=== PATIENT | female | born 1995 | race Caucasian/White ===

== ENCOUNTER 2017-11-01 18:53 | Day surgery (SDC) | payer OTHER ==
[2017-11-01 19:37] VITALS: BP 107/57; TEMP 98.4
--- NOTE | 2017-11-02 05:02 | SS ---
OB TRIAGE NOTE DATE OF EVALUATION: 11/01/2017 REGULAR PHYSICIAN: Radha Dominguez MD EVALUATING PHYSICIAN: Burak Gage MD CHIEF COMPLAINT: No movement in the last 24 hours. HISTORY OF PRESENT ILLNESS: Ms. Sinclair is a 22-year-old white G1, P0, estimated date of confinem ent of 03/03/2018, who presents complaining of suspected decreased movement over the last 24 ho urs. She denies associated vaginal bleeding or leakage of fluid. Her care has been with Dr Blair Dominguez and she claims that she had a normal ultrasound at [facility] at 16-18 weeks . PAST MEDICAL HISTORY: Asthma and ADHD. CURRENT MEDICATIONS: vitamins only. ALLERGIES: PENICILLIN and SULFA. PAST SURGICAL HISTORY: Unremarkable. SOCIAL HISTORY: She denies tobacco, alcohol, or drug use. FAMILY HISTORY: Unremarkable. REVIEW OF SYSTEMS: Denies nausea, vomiting, fever, chills, vaginal bleeding, or ruptured membranes. PHYSICAL EXAMINATION: VITAL SIGNS: Stable. She is afebrile. ABDOMEN: Soft, nontender and gravid. heart tones are easily obtained and active movemen t is heard through the tocodynamometer. No uterine contractions were seen. ASSESSMENT: 1. A 22 and 4/7th week intrauterine . 2. Reassuring heart tones in triage tonight. PLAN: Patient will be discharged home with precautions. She is reassured and she feels much better. At the conclusion of the encounter, she states that she is now feeling her baby move. She will fol low up for her next regular visit with Dr. Dominguez.
== END 2017-11-01 19:49 | disposition home or self-care (01) ==
LOC: L&D/OP 18:53
PROVIDERS: ATTEND Obstetrics & Gynecology
DX: Z03.79 Encounter for other suspected maternal and fetal conditions ruled out (principal); Z88.0 Allergy status to penicillin; Z88.2 Allergy status to sulfonamides
CPT/HCPCS: 99282

== ENCOUNTER 2018-02-26 21:00 | Inpatient (IN) | payer MEDICAID, OTHER ==
[2018-02-26] MEDS ORDERED: NS w/ Oxytocin 10 units 500 ML IV SCH (21:45)
[2018-02-26] MEDS ORDERED: HYDROcodone/Acetaminophen 5/325 mg Tablet PO PRN (21:45)
[2018-02-26] MEDS ORDERED: Methylergonovine 0.2 MG/ML VIAL IM PRN (21:45)
[2018-02-26] MEDS ORDERED: Meperidine HCl/PF 25 MG/ML VIAL IM/IV PRN (21:45)
[2018-02-26] MEDS ORDERED: Ibuprofen 800 MG TAB PO PRN (21:45)
[2018-02-26] MEDS ORDERED: Butorphanol Tartrate 1 MG/ML VIAL SLOW IVP PRN (21:45)
[2018-02-26] MEDS ORDERED: Ondansetron PF 4 MG/2 ML Vial IVP PRN (21:45)
[2018-02-26] MEDS ORDERED: NS / Oxytocin 40 units/1000ml 1,000 ML IV PRN (21:45)
[2018-02-26] MEDS ORDERED: Carboprost 250 MCG/ML AMP IM PRN (21:45)
[2018-02-26] MEDS ORDERED: Promethazine HCl 25 MG/ML VIAL IM PRN (21:45)
[2018-02-26] MEDS ORDERED: Lidocaine 1% (PF) 30 ML VIAL SC PRN (21:45)
[2018-02-26] MEDS ORDERED: Acetaminophen 500 MG TAB PO PRN (21:45)
[2018-02-26] MEDS ORDERED: Misoprostol 200 MCG TAB PR PRN (21:45)
[2018-02-26] MEDS: Lactated Ringer's 1,000 ML IV SCH (21:51)
[2018-02-26 21:55] VITALS: BMI 35.1
[2018-02-26 22:07] LABS: Hemoglobin 11.1 g/dL (12.0-16.0); Mean Corpuscular HGB CONC 31.8 g/dL (32.0-36.0); Mean Corpuscular Hemoglobin 24.3 pg (25.0-35.0); Mean Corpuscular Volume 76.4 fL (78.0-98.0); Mean Platelet Volume 9.3 fL (7.4-10.4); Platelet Count 200 thou/uL (130-400); Red Blood Cell (RBC) Count 4.55 mill/uL (4.00-5.20); White Blood Cell (WBC) Count 11.5 thou/uL (4.8-10.8)
[2018-02-26] MEDS: Misoprostol 100 MCG TAB VAG SCH (22:23)
[2018-02-26 22:49] LABS: Syphilis Antibody Nonreactive (Nonreactive); Syphilis Antibody Index 0.06 S/CO (<1.00 Non-Reactive)
[2018-02-26 23:58] LABS: HBSAg Index 0.22 S/CO (0-0.99); Hep B Surf Ag Non-Reactive S/CO (NonReactive)
[2018-02-27] MEDS: Misoprostol 100 MCG TAB VAG SCH (02:01)
[2018-02-27] MEDS: Lactated Ringer's 1,000 ML IV SCH (03:52)
--- NOTE | 2018-02-27 13:53 | PDOC.LDHP ---
Labor and Delivery H&P Chief complaint: contractions HPI: 39 + weeks c/o contractions. Shceduled for iOL tonight with cytotec. We discussed in the office that her cervix was not favorable but she arrived to L& D tonight with CTX. Would like to try cytotec. Current gestational age (weeks): 39 Dating criteria: last menstrual period, first trimester ultrasound Grav: 1 Para: 0 OB History Details: Routine OB care. Current complications: none Abnormal US findings: Yes ( ECHO done for family h/o congenital heart disease - showed VSD) Current medications: pre- vitamins Previous surgical history: none Allergies/Adverse Reactions: Allergies Allergy/AdvReac Type Severity Reaction Status Date / Time Penicillins Allergy Intermediate Severe Verified 02/26/18 21:49 Hives Sulfa (Sulfonamide Allergy Intermediate Short of Verified 02/26/18 21:49 Antibiotics) Breath Social history: none - Physical Exam Vital signs reviewed and normal: yes General: NAD Heart: RRR Lungs: CTAB Abdomen: NTTP Extremeties: no edema FHT: category 1 - Vaginal Exam cm dilated: 0 Effacement: 0% Station: -3 - OB Labs Blood type: A RH: positive Antibody Screen: negative HIV: negative RPR: negative HEPSAg: negative 1 hour GCT: negative GBS: negative Urine drug screen: not done Rubella: non-immune - Assessment L&D Assessment: elective induction at term - Plan Plan: admit to L&D, cervical ripening, labor augmentation if indicated (WIll try cytotec overnight. Cervix still not favorable. FWB reassuring.)
--- NOTE | 2018-02-27 13:58 | PDOC.LDPN ---
Labor & Delivery Progress Note - Subjective Subjective: comfortable - Objective Vital signs reviewed and normal: yes General: NAD Uterine fundus: non tender Dilation: 1 Effacement: 0% Station: -3 FHT: category 1 [place] contractions every: 2 minuteds - Assessment (1) Elective induction of labor planned Code(s): AHC2360 - Status: Acute (2) Term Code(s): Z34.80 - ENCOUNTER FOR SUPRVSN OF NORMAL , UNSP TRIMESTER Status: Acute Plan: other (Discussed with pt and her that she did not respond to cytotec overnight. Cervix still not favorable. Offered continued IOL with balloon and pitocin or D/C home and F/U in a few days to reassess the cervix. THey agreed that they want to go home. D/C home with short term F/U in office.)
== END 2018-02-27 10:37 | disposition home health service (06) | DRG 833 ==
LOC: L&D 21:20
PROVIDERS: ADMIT Family Medicine; ATTEND Family Medicine
PROC: 3E0P7VZ Introduction of Hormone into Female Reproductive, Via Natural or Artificial Opening (ICD-10-PCS; principal; 2018-02-26)
DX: O61.0 Failed medical induction of labor (principal); Z3A.39 39 weeks gestation of pregnancy; J45.20 Mild intermittent asthma, uncomplicated; Z79.51 Long term (current) use of inhaled steroids; O99.513 Diseases of the respiratory system complicating pregnancy, third trimester; F90.9 Attention-deficit hyperactivity disorder, unspecified type; F31.9 Bipolar disorder, unspecified; O99.343 Other mental disorders complicating pregnancy, third trimester
CPT/HCPCS: 36415; 85027; 86780; 86850; 86900; 86901; 87340; 99285

== ENCOUNTER 2018-02-28 16:38 | Day surgery (SDC) | payer MEDICAID ==
[2018-02-28 17:12] VITALS: BMI 35.1
[2018-02-28] MEDS ORDERED: Butorphanol Tartrate 1 MG/ML VIAL IM PRN (18:03)
--- NOTE | 2018-03-01 08:24 | PDOC.LDHP ---
Labor and Delivery H&P Chief complaint: contractions HPI: 22 y/o G1 at 39w4d, patient of Dr. Dominguez, presents with ctx. Patient was discharged yesterday after initial attempt at induction. Denies VB, LOF, or decreased FM. ROS neg for HEENT, CV, pulm, GI, , neuro, psych, skin, musculoskeletal, or constitutional symptoms other than mentioned above. OB History Details: First Current complications: none Past Medical History: None Current medications: pre-emmo vitamins Previous surgical history: none Allergies/Adverse Reactions: Allergies Allergy/AdvReac Type Severity Reaction Status Date / Time Penicillins Allergy Intermediate Severe Verified 02/26/18 21:49 Hives Sulfa (Sulfonamide Allergy Intermediate Short of Verified 02/26/18 21:49 Antibiotics) Breath Social history: none - Physical Exam Vital signs reviewed and normal: yes General: NAD, resting Lungs: nonlabored breathing Abdomen: gravid Extremeties: no edema FHT: category 1 (130s, mod variability, + accels, no decels) [place] contractions every: irregular - Vaginal Exam cm dilated: 1 Effacement: 50% Station: -3 - Assessment 22 y/o G1 at 39w4d with no e/o active labor. status reassuring with reactive NST. - Plan -: D/c home with precautions. Has scheduled appointment to follow up with Dr. Dominguez.
== END 2018-02-28 19:30 | disposition home or self-care (01) ==
LOC: L&D/OP 16:38
PROVIDERS: ATTEND Family Medicine
DX: O47.1 False labor at or after 37 completed weeks of gestation (principal); Z88.0 Allergy status to penicillin; Z88.2 Allergy status to sulfonamides; Z3A.39 39 weeks gestation of pregnancy
CPT/HCPCS: 96372; 99283; J0595

== ENCOUNTER 2018-03-01 15:32 | Inpatient (IN) | payer MEDICAID ==
[2018-03-01 16:24] VITALS: BMI 35.1
[2018-03-01] MEDS ORDERED: Promethazine HCl 25 MG/ML VIAL IM PRN ×2 (17:43→19:05)
[2018-03-01] MEDS ORDERED: Misoprostol 200 MCG TAB PR PRN (17:43)
[2018-03-01] MEDS ORDERED: NS / Oxytocin 40 units/1000ml 1,000 ML IV PRN (17:43)
[2018-03-01] MEDS ORDERED: Meperidine HCl/PF 25 MG/ML VIAL IM/IV PRN (17:43)
[2018-03-01] MEDS ORDERED: Ibuprofen 800 MG TAB PO PRN (17:43)
[2018-03-01] MEDS ORDERED: Acetaminophen 500 MG TAB PO PRN (17:43)
[2018-03-01] MEDS ORDERED: Lidocaine 1% (PF) 30 ML VIAL SC PRN (17:43)
[2018-03-01] MEDS ORDERED: Butorphanol Tartrate 1 MG/ML VIAL SLOW IVP PRN (17:43)
[2018-03-01] MEDS ORDERED: Carboprost 250 MCG/ML AMP IM PRN (17:43)
[2018-03-01] MEDS ORDERED: Ondansetron PF 4 MG/2 ML Vial IVP PRN ×2 (17:43→19:05)
[2018-03-01] MEDS ORDERED: HYDROcodone/Acetaminophen 5/325 mg Tablet PO PRN (17:43)
[2018-03-01] MEDS ORDERED: Methylergonovine 0.2 MG/ML VIAL IM PRN (17:43)
[2018-03-01] MEDS ORDERED: NS w/ Oxytocin 10 units 500 ML IV SCH (17:45)
[2018-03-01] MEDS ORDERED: Fentanyl 4 mcg/Bup 0.1% Cadd 100 ML ONE (17:49)
[2018-03-01 18:21] LABS: Hemoglobin 11.9 g/dL (12.0-16.0); Mean Corpuscular HGB CONC 31.6 g/dL (32.0-36.0); Mean Corpuscular Hemoglobin 24.4 pg (25.0-35.0); Mean Corpuscular Volume 77.3 fL (78.0-98.0); Mean Platelet Volume 9.7 fL (7.4-10.4); Platelet Count 213 thou/uL (130-400); RBC Distribution Width 15.3 % (11.5-14.5); Red Blood Cell (RBC) Count 4.86 mill/uL (4.00-5.20)
[2018-03-01 18:48] LABS: Syphilis Antibody Nonreactive (Nonreactive); Syphilis Antibody Index 0.05 S/CO (<1.00 Non-Reactive)
[2018-03-01 18:49] LABS: Hep B Surf Ag Non-Reactive S/CO (NonReactive)
[2018-03-01] MEDS ORDERED: Lactated Ringer's 500 ML IV PRN (19:05)
[2018-03-01] MEDS ORDERED: Eucerin (Mineral Oil/Petrolatum,White) 30 gm Jar TOP PRN (19:05)
[2018-03-01] MEDS ORDERED: ePHEDrine/0.9% NaCl/PF SYRINGE 50 mg/10 ml SLOW IVP PRN (19:05)
[2018-03-01] MEDS ORDERED: Naloxone HCl 0.4 mg/ml Vial IVP PRN ×2 (19:05)
[2018-03-01] MEDS ORDERED: Acetaminophen 325 MG TAB PO PRN (19:05)
[2018-03-01] MEDS ORDERED: Fentanyl 4 mcg/Bupivacaine 0.1% Cassette 100 ML EPIDURAL SCH (19:15)
[2018-03-01] MEDS ORDERED: Communication Order-Pharmacy FS SCH (19:15)
[2018-03-01] MEDS: diphenhydrAMINE 50 MG/ML VIAL IVP PRN ×2 (20:47→23:41)
[2018-03-01] MEDS: Lactated Ringer's 1,000 ML IV SCH (23:38)
[2018-03-02] MEDS ORDERED: Acetaminophen 500 MG TAB PO SCH (01:45)
[2018-03-02] MEDS ORDERED: Fentanyl 4 mcg/Bup 0.1% Cadd 100 ML ONE (02:07)
[2018-03-02] MEDS ORDERED: Lidocaine 1% (PF) 30 ML VIAL ONE (02:22)
[2018-03-02] MEDS ORDERED: NS / Oxytocin 40 units/1000ml 0 ML ONE ×2 (02:22→02:23)
[2018-03-02] MEDS ORDERED: NS / Oxytocin 40 units/1000ml 1,000 ML ONE ×2 (02:23→05:37)
[2018-03-02] MEDS: cefOXitin 2 GM in Sodium Chloride 0.9% 100 ML IVPB SCH ×3 (02:29→17:33)
[2018-03-02] MEDS: diphenhydrAMINE 50 MG/ML VIAL IVP PRN (05:54)
--- NOTE | 2018-03-02 06:05 | OP ---
DATE OF DELIVERY: 03/02/2018 PREOPERATIVE DIAGNOSES: 1. Term intrauterine in labor. 2. Intrapartum fever. POSTOPERATIVE DIAGNOSES: 1. Term intrauterine in labor. 2. Intrapartum fever. PROCEDURE PERFORMED: Normal spontaneous vaginal delivery. SURGEON: Radha Dominguez M.D. ANESTHESIA: Epidural. ESTIMATED BLOOD LOSS: Please see the nurse's notes for QBL. BRIEF DELIVERY SUMMARY: This is a 22-year-old G1 now P1 who presented in active labor. She progress ed well with Pitocin augmentation to complete and pushing. She did develop a fever approximately 3 h ours prior to delivery. She was treated with Tylenol and cefoxitin 2 grams due to PENICILLIN and SUL FA allergies. There was some tachycardia into the 170s related to that fever, but variability of the heart rate tracing was always good. she was complete and pushing. She delivered a live female infant, head OA. Mouth and nares were bulb suctioned at the perineum. There was no nu chal cord. Shoulders and body easily followed and the was placed on mother's abdomen. Infant Apgars were 8 at 1 minute and 9 at 5 minutes. The umbilical cord was doubly clamped and cut and cor d blood was sent for analysis. Placenta delivered spontaneously and intact with a 3-vessel umbilical cord. Uterine fundus was firm following evacuation of the placenta. Cervix, vagina, and perineum w ere inspected for lacerations and there were none to be found. Mom and baby were left with the nurse in excellent condition attempting to breast feed.
[2018-03-02] MEDS ORDERED: diphenhydrAMINE 25 MG CAP PO PRN (06:39)
[2018-03-02] MEDS ORDERED: Preparation H Ointment 28 GM TUBE PR PRN (06:39)
[2018-03-02] MEDS ORDERED: NS / Oxytocin 40 units/1000ml 1,000 ML IV SCH (06:39)
[2018-03-02] MEDS ORDERED: Lanolin Ointment 7 GM TUBE TOP PRN (06:39)
[2018-03-02] MEDS ORDERED: Benzocaine/Menthol 20-0.5% 60 ML CAN TOP PRN (06:39)
[2018-03-02] MEDS ORDERED: Bisacodyl 10 MG SUPP PR PRN (06:39)
[2018-03-02] MEDS ORDERED: Milk Of Magnesia 30 ML UDCUP PO PRN (06:39)
[2018-03-02] MEDS ORDERED: Ibuprofen 800 MG TAB PO SCH (06:45)
[2018-03-02] MEDS: Ferrous Sulfate 325 MG TAB PO SCH ×2 (08:39→17:30)
[2018-03-02] MEDS: Docusate Calcium (SURFAK) 240 MG CAP PO SCH ×2 (10:08→20:54)
[2018-03-02] MEDS: Lactated Ringer's 1,000 ML IV SCH (13:24)
[2018-03-02] MEDS: Ibuprofen 800 MG TAB PO SCH ×2 (13:47→20:54)
[2018-03-03] MEDS ORDERED: Sodium Chloride 0.9% 10 ML ONE (01:36)
[2018-03-03] MEDS: cefOXitin 2 GM in Sodium Chloride 0.9% 100 ML IVPB SCH ×3 (01:41→17:29)
[2018-03-03] MEDS: Ibuprofen 800 MG TAB PO SCH ×3 (06:22→22:01)
[2018-03-03] MEDS: Ferrous Sulfate 325 MG TAB PO SCH (08:19)
[2018-03-03] MEDS: Docusate Calcium (SURFAK) 240 MG CAP PO SCH ×2 (09:07→22:01)
[2018-03-03] MEDS: HYDROcodone/Acetaminophen 5/325 mg Tablet PO PRN ×2 (09:11→23:00)
[2018-03-03] MEDS ORDERED: Bupivacaine 0.25% HCL 30 ML VIAL ONE (13:46)
--- NOTE | 2018-03-03 21:41 | PDOC.EVN ---
Event Note - Event Note Event Note: I was notified by Angi, the patient's nurse, that the patient was upset because she wanted to go home today. Her covering physician is Dex Armstrong. He authorized her discharge home. I then recieved another call that baby will not be cleared until tomorrow. I was asked to place an order for AM discharge for . I will likely send home tomorrow if vitals wnl
--- NOTE | 2018-03-03 22:39 | PDOC.PP ---
Post Progress Note Post Day #: 1 Subjective: OK with discharge tomorrow AM PO intake tolerated: yes Flatus: yes Ambulation: yes Vital Signs (12 hours) Temp Pulse Resp BP 03/03/18 19:55 98.2 F 63 18 125/79 Weight Weight 186 lb - Physical Examination General: NAD Cardiovascular: no m/r/g Respiratory: clear to auscultation bilaterally Abdominal: + bowel sounds Extremities: negative homans (B) Neurological: no gross focal deficits Result Diagrams: 03/01/18 17:10 Additional Labs: Post Labs Blood Type A POSITIVE 03/01/18 17:10 Hep Bs Antigen Non-Reactive S/CO (NonReactive) 03/01/18 17:43 (1) Vaginal delivery Code(s): O80 - ENCOUNTER FOR FULL-TERM UNCOMPLICATED DELIVERY Status: Acute - Assessment/Plan No acute issues, BPs reviewed. Afebrile. Planning on AM discharge as per prior notes. Asked to discharge patient tomorrow for Dr Nitish Armstrong
[2018-03-04] MEDS: cefOXitin 2 GM in Sodium Chloride 0.9% 100 ML IVPB SCH (02:07)
[2018-03-04] MEDS: Ibuprofen 800 MG TAB PO SCH (05:55)
[2018-03-04 05:57] VITALS: TEMP 98
--- NOTE | 2018-03-04 06:02 | PDOC.EVN ---
Event Note - Event Note Event Note: DISCHARGE NOTE: Patient seen at the request of josefina Castillo: Procedure: Vaginal Delivery Patient s/p vaginal delivery, now PPD2, doing well. Patient sent 03/04/18 AM and cleared for DC to home once baby's cultures return negative. Has F/U with Dr Dominguez. S. C/O back discomfort from delivery O. VSS afebrile Was on IV ABX Physical: NAD Ut firm, NT A/P: PPD2 doing well, afebrile...ok for AM discharge home. Keep follow up for Dr Dominguez
[2018-03-04 08:09] VITALS: BP 127/70
[2018-03-04] MEDS: Ferrous Sulfate 325 MG TAB PO SCH (08:27)
[2018-03-04] MEDS: Docusate Calcium (SURFAK) 240 MG CAP PO SCH (08:42)
== END 2018-03-04 09:35 | disposition home or self-care (01) | DRG 807 ==
LOC: L&D/OP 15:32 → L&D 16:07 → 3SE 03-02 08:26
PROVIDERS: ADMIT Family Medicine; ATTEND Family Medicine
PROC: 10E0XZZ Delivery of Products of Conception, External Approach (ICD-10-PCS; principal; 2018-03-02)
PROC: 10907ZC Drainage of Amniotic Fluid, Therapeutic from Products of Conception, Via Natural or Artificial Opening (ICD-10-PCS; 2018-03-02)
DX: O75.2 Pyrexia during labor, not elsewhere classified (principal); Z37.0 Single live birth; Z88.0 Allergy status to penicillin; Z88.2 Allergy status to sulfonamides; Z3A.39 39 weeks gestation of pregnancy
CPT/HCPCS: 51702; 85027; 86780; 86850; 86900; 86901; 87340; 96372; 99283; 99285; J0595; J0694; J1200; J2001; J2405; J7050; S0020

== ENCOUNTER 2018-05-20 15:44 | Emergency (ER) | payer OTHER ==
[2018-05-20] MEDS ORDERED: Acetaminophen 500 MG TAB ONE (16:33)
== END 2018-05-20 17:21 | disposition home or self-care (01) ==
LOC: ERS 15:44
DX: J06.9 Acute upper respiratory infection, unspecified (principal); F41.9 Anxiety disorder, unspecified; F31.9 Bipolar disorder, unspecified; F90.9 Attention-deficit hyperactivity disorder, unspecified type
CPT/HCPCS: 87081; 87430; 87804; 99283

== ENCOUNTER 2018-07-25 04:05 | Emergency (ER) | payer OTHER ==
[2018-07-25 04:57] LABS: Bilirubin Negative (Negative); Blood, Urine Moderate (Negative); Glucose, Urine (Dipstick) Negative (Negative); Leukocyte Large (Negative); Nitrite Positive (Negative); Protein, Urine (Dipstick) 30 mg/dL (Neg-Trace); Specific Gravity, Urine 1.012 (1.002-1.036); Urobilinogen 0.2 mg/dL (0.2-1.0)
[2018-07-25 04:59] LABS: Bacteria/HPF 4+ HPF (None Seen); Hyaline Casts/LPF 0-3 HYALINE CAST LPF (0-3 Hyaline); Pathc Cast-AUWi Flag 0.27 (0-2.49); Pregnancy Test - Urine (BHCG) Negative (Negative); Pregu Control Background? CLEAR/WHITE (CLR/WHITE); Pregu Control Bar Appear? YES (CONTROL BAR); Specific Gravity 1.012 (1.002-1.036); Squamous Epithelial None Seen HPF (0-3); Yeast-AUWi Flag 92.3 (0-25.0)
[2018-07-25 05:00] LABS: Clarity Cloudy (Clear)
[2018-07-25 05:08] LABS: Yeast-All Forms 2+ HPF (None Seen)
[2018-07-25] MEDS ORDERED: Morphine 4 MG/ML VIAL ONE (05:14)
[2018-07-25] MEDS ORDERED: Ondansetron PF 4 MG/2 ML Vial ONE (05:14)
[2018-07-25 05:30] LABS: #Eosinphils 0.1 thou/uL (0.0-0.7); #Monocytes 0.6 thou/uL (0.11-0.59); #Neutrophils 10.2 thou/uL (1.40-6.50); %Basophils 0.2 % (0.0-1.0); %Eosinophils 0.4 % (0.0-10.0); %Lymphocytes 8.6 % (21.0-51.0); %Monocytes 4.7 % (0.0-10.0); %Neutrophils 86.1 % (42.0-75.0); Hemoglobin 12.6 g/dL (12.0-16.0); Mean Corpuscular HGB CONC 33.8 g/dL (32.0-36.0); Mean Corpuscular Hemoglobin 28.4 pg (27.0-31.0); Mean Corpuscular Volume 83.9 fL (78.0-98.0); Mean Platelet Volume 7.7 fL (7.4-10.4); Platelet Count 180 thou/uL (130-400); RBC Distribution Width 11.3 % (11.5-14.5); Red Blood Cell (RBC) Count 4.44 mill/uL (4.20-5.40); White Blood Cell (WBC) Count 11.8 thou/uL (4.8-10.8)
[2018-07-25 05:46] LABS: ALT (SGPT) 14 U/L (8-55); AST (SGOT) 21 U/L (5-34); Albumin 4.3 g/dL (3.5-5.0); Alkaline Phosphatase 116 U/L (40-150); Anion Gap 12 mmol/L (10-20); BUN (Urea Nitrogen) 17 mg/dL (7.0-18.7); Bilirubin, Total 1.7 mg/dL (0.2-1.2); Calc. Creatinine Clearance 0 mL/min (70-130); Calcium 9.4 mg/dL (7.8-10.44); Carbon Dioxide 22 mmol/L (22-29); Chloride 106 mmol/L (98-107); Estimated GFR-MDRD Greater than 90; Globulin 2.8 g/dL (2.4-3.5); Glucose 100 mg/dL (70-105); Protein, Total 7.1 g/dL (6.0-8.3); Sodium 136 mmol/L (136-145)
[2018-07-25] MEDS ORDERED: Ciprofloxacin HCL/Dexameth Otic Drops 7.5 ml Bottle ONE (06:15)
[2018-07-25] MEDS ORDERED: Acetaminophen 500 MG TAB ONE (06:16)
--- NOTE | 2018-07-25 07:08 | CT ---
CT ABDOMEN AND PELVIS NONCONTRAST: INDICATIONS: Left flank pain. COMPARISON: No prior imaging comparison. FINDINGS: There is no evidence of obstructive uropathy. No discrete urinary tract calculi. The imaged lung ba ses are clear. Mild urinary bladder wall prominence is present with slight perivesicular fat strandi ng. Limited evaluation of the solid abdominal organs without IV contrast. The bowel is incompletely assessed on the basis of the noncontrast technique. There is moderate distention of the gallbladder . The osseous structures are intact. IMPRESSION: 1. No urolithiasis or obstructive uropathy. 2. Mild wall prominence of the urinary bladder with a slight degree of perivesicular fat stranding. Recommend clinical correlation to exclude evidence of a urinary tract infection. Note is made that ascending urinary tract infection on the basis of this examination is not excluded. 3. Evaluation otherwise limited on the basis of noncontrast technique. POS: SUSANA
== END 2018-07-25 08:20 | disposition home or self-care (01) ==
LOC: ERS 04:05
DX: A41.9 Sepsis, unspecified organism (principal); N12 Tubulo-interstitial nephritis, not specified as acute or chronic; N39.0 Urinary tract infection, site not specified; F41.9 Anxiety disorder, unspecified; F31.9 Bipolar disorder, unspecified; F90.9 Attention-deficit hyperactivity disorder, unspecified type
CPT/HCPCS: 74176; 80053; 81003; 81015; 81025; 83605; 85025; 87077; 87086; 87186; 96361; 96365; 96375; J0744; J2270; J2405

== ENCOUNTER 2019-01-11 18:43 | Day surgery (SDC) | payer OTHER ==
[2019-01-11 19:26] VITALS: BMI 35.1
[2019-01-11] MEDS ORDERED: hydrALAZINE 20 MG/ML VIAL SLOW IVP PRN (20:12)
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
== END 2019-01-11 20:25 | disposition home or self-care (01) ==
LOC: L&D/OP 18:43
PROVIDERS: ATTEND Family Medicine
DX: O36.8120 Decreased fetal movements, second trimester, not applicable or unspecified (principal); O99.89 Other specified diseases and conditions complicating pregnancy, childbirth and the puerperium; R10.9 Unspecified abdominal pain; Z3A.24 24 weeks gestation of pregnancy; Z88.0 Allergy status to penicillin; Z88.2 Allergy status to sulfonamides; W50.1XXA Accidental kick by another person, initial encounter

== ENCOUNTER 2019-04-12 21:49 | Day surgery (SDC) | payer OTHER ==
[2019-04-12 22:28] VITALS: BP 119/72; TEMP 98.1; BMI 31.9
[2019-04-12] MEDS ORDERED: hydrALAZINE 20 MG/ML VIAL SLOW IVP PRN (22:44)
--- NOTE | 2019-04-12 22:54 | PDOC.LDHP ---
Labor and Delivery H&P Chief complaint: contractions, decreased movement HPI: Patient of Dr Dominguez 24 yo in 2018 (vaginal) here for decreased FM, and occasional CTX. No LOF, no VB. No ROSE, no recent trrauma. Review of Systems: complete ROS completed and as per HPI Current gestational age (weeks): 37 (2 Days) Due date: 05/01/19 Dating criteria: last menstrual period Grav: 2 Para: 1 OB History Details: x1 Current complications: none Abnormal US findings: No Past Medical History: none Current medications: pre- vitamins Previous surgical history: other (T&A; [place] teeth) Allergies/Adverse Reactions: Allergies Allergy/AdvReac Type Severity Reaction Status Date / Time Penicillins Allergy Intermediate Severe Verified 04/12/19 22:23 Hives Sulfa (Sulfonamide Allergy Intermediate Short of Verified 04/12/19 22:23 Antibiotics) Breath Social history: none - Physical Exam Vital signs reviewed and normal: yes (119/72 98 20 98.1) General: NAD Heart: RRR Lungs: CTAB Abdomen: gravid Extremeties: no edema FHT: category 1 (moderate variability with large accel at start...then limited accel.) [place] contractions every: irritability - Vaginal Exam cm dilated: 1 Effacement: 0% - Assessment Decreased FM at 37 weeks, no cervical change from recent office check (1cm): NST reassurring - Plan Plan: observation in L&D (reassurrance given. Ordered BPP to be conservative.)
--- NOTE | 2019-04-12 23:30 | PDOC.EVN ---
Event Note - Event Note Event Note: BPP 11/16...01/18 with NST Patient states feels Baby movement now. OK for outpatient care
--- NOTE | 2019-04-12 23:32 | ULT ---
EXAM: US Biophysical Profile PROVIDED CLINICAL HISTORY: Decreased movement COMPARISON: None FINDINGS: tone: 2/2 breathin/2 movements: 2/2 Amniotic fluid: 2/2 Total: 8/8 heart rate 139 bpm. RAMO 10.9. Vertex presentation. Placenta is anteriorly located without evide nce for previa. IMPRESSION: Normal biophysical profile.
== END 2019-04-12 23:40 | disposition home or self-care (01) ==
LOC: L&D/OP 21:49
PROVIDERS: ATTEND Family Medicine
DX: O47.1 False labor at or after 37 completed weeks of gestation (principal); O36.8130 Decreased fetal movements, third trimester, not applicable or unspecified; Z3A.37 37 weeks gestation of pregnancy; Z88.0 Allergy status to penicillin; Z88.2 Allergy status to sulfonamides
CPT/HCPCS: 76819; 99282

== ENCOUNTER 2019-04-27 08:21 | Inpatient (IN) | payer OTHER ==
[2019-04-27] MEDS ORDERED: Bupivacaine/Epinephrine 0.25% 30 ML VIAL ONE (09:28)
[2019-04-27 12:51] VITALS: BMI 38.1
[2019-04-27] MEDS: Lactated Ringer's 1,000 ML IV SCH ×3 (13:42→19:27)
[2019-04-27] MEDS ORDERED: Meperidine HCl/PF 25 MG/ML VIAL IM/IV PRN (14:19)
[2019-04-27] MEDS ORDERED: Ibuprofen 800 MG TAB PO PRN (14:19)
[2019-04-27] MEDS ORDERED: Acetaminophen 500 MG TAB PO PRN (14:19)
[2019-04-27] MEDS ORDERED: Misoprostol 200 MCG TAB PR PRN (14:19)
[2019-04-27] MEDS ORDERED: HYDROcodone/Acetaminophen 5/325 mg Tablet PO PRN (14:19)
[2019-04-27] MEDS ORDERED: Lidocaine 1% (PF) 30 ML VIAL SC PRN (14:19)
[2019-04-27] MEDS ORDERED: NS / Oxytocin 40 units/1000ml 1,000 ML IV PRN (14:19)
[2019-04-27] MEDS ORDERED: hydrALAZINE 20 MG/ML VIAL SLOW IVP PRN (14:19)
[2019-04-27] MEDS ORDERED: Promethazine HCl 25 MG/ML VIAL IM PRN ×2 (14:19→22:51)
[2019-04-27] MEDS ORDERED: Carboprost 250 MCG/ML AMP IM PRN (14:19)
[2019-04-27] MEDS ORDERED: Methylergonovine 0.2 MG/ML VIAL IM PRN (14:19)
[2019-04-27] MEDS ORDERED: Ondansetron PF 4 MG/2 ML Vial IVP PRN ×2 (14:19→22:51)
[2019-04-27] MEDS ORDERED: Butorphanol Tartrate 1 MG/ML VIAL SLOW IVP PRN (14:19)
--- NOTE | 2019-04-27 14:24 | PDOC.LDHP ---
Labor and Delivery H&P Chief complaint: scheduled induction HPI: at 39 weeks requesting elective IOL. Cervix was 2/thick in my office earlier this week. Will proceed with pitocin and Cook's balloon. Current gestational age (weeks): 39 Due date: 04/30/19 Dating criteria: first trimester ultrasound Grav: 2 Para: 1 Current complications: none Abnormal US findings: No Current medications: pre- vitamins Previous surgical history: none Allergies/Adverse Reactions: Allergies Allergy/AdvReac Type Severity Reaction Status Date / Time Penicillins Allergy Intermediate Severe Verified 04/12/19 22:23 Hives Sulfa (Sulfonamide Allergy Intermediate Short of Verified 04/12/19 22:23 Antibiotics) Breath Social history: none - Physical Exam Vital signs reviewed and normal: yes General: NAD Heart: RRR Lungs: CTAB Abdomen: gravid Extremeties: no edema FHT: category 1 - Vaginal Exam cm dilated: 2 Effacement: 25% Station: -2 - OB Labs Blood type: A RH: positive Antibody Screen: negative HIV: negative RPR: negative HEPSAg: negative 1 hour GCT: negative GBS: positive Urine drug screen: not done Rubella: non-immune - Assessment L&D Assessment: elective induction at term - Plan Plan: admit to L&D, cervical ripening (Will place Cook's balloon. Start pitocin first.), labor augmentation if indicated, GBS antibiotic prophylaxis (vacomycin due to penicillin allergy), anesthesia consult for pain management
[2019-04-27] MEDS ORDERED: NS w/ Oxytocin 10 units 500 ML IV SCH (14:30)
[2019-04-27 14:50] LABS: Hemoglobin 11.1 g/dL (12.0-16.0); Mean Corpuscular HGB CONC 32.7 g/dL (32.0-36.0); Mean Corpuscular Hemoglobin 23.4 pg (27.0-31.0); Mean Corpuscular Volume 71.7 fL (78.0-98.0); Mean Platelet Volume 10.5 fL (7.4-10.4); Platelet Count 171 thou/uL (130-400); RBC Distribution Width 15.6 % (11.5-14.5); Red Blood Cell (RBC) Count 4.73 mill/uL (4.20-5.40); White Blood Cell (WBC) Count 9.4 thou/uL (4.8-10.8)
[2019-04-27] MEDS ORDERED: Vancomycin HCl 1 GM in Premix Bag 1 BAG IVPB SCH (15:00)
[2019-04-27 15:30] LABS: Syphilis Antibody Nonreactive (Nonreactive); Syphilis Antibody Index 0.05 S/CO (<1.00 Non-Reactive)
[2019-04-27 15:31] LABS: HBSAg Index 0.22 S/CO (0-0.99); Hep B Surf Ag Non-Reactive S/CO (NonReactive)
[2019-04-27] MEDS ORDERED: Fentanyl 4 mcg/Bup 0.1% Cadd 100 ML ONE (18:21)
[2019-04-27] MEDS ORDERED: Fentanyl 100 MCG/2 ML VIAL ONE (19:06)
--- NOTE | 2019-04-27 21:48 | PDOC.LDPN ---
Labor & Delivery Progress Note - Subjective Subjective: comfortable, other (nauseated) - Objective Vital signs reviewed and normal: yes General: NAD, resting Uterine fundus: non tender Dilation: 6 Effacement: 75% Station: -1 FHT: category 1 [place] contractions every: 2 mins AROM: clear fluid Plan: continue plan of care
[2019-04-27] MEDS ORDERED: diphenhydrAMINE 50 MG/ML VIAL IVP PRN (22:51)
[2019-04-27] MEDS ORDERED: Lactated Ringer's 500 ML IV PRN (22:51)
[2019-04-27] MEDS ORDERED: ePHEDrine/0.9% NaCl/PF SYRINGE 50 mg/10 ml SLOW IVP PRN (22:51)
[2019-04-27] MEDS ORDERED: Naloxone HCl 0.4 mg/ml Vial IVP PRN ×2 (22:51)
[2019-04-27] MEDS ORDERED: Acetaminophen 325 MG TAB PO PRN (22:51)
[2019-04-27] MEDS ORDERED: Fentanyl 4 mcg/Bupivacaine 0.1% Cassette 100 ML EPIDURAL SCH (23:00)
[2019-04-27] MEDS ORDERED: Communication Order-Pharmacy FS SCH (23:00)
[2019-04-28] MEDS: Lactated Ringer's 1,000 ML IV SCH (02:10)
--- NOTE | 2019-04-28 04:17 | PDOC.OPDEL ---
OB Operative/Delivery Note Delivery Dr/Surgeon: Alberto Pre-Delivery Diagnosis: elective induction Procedure/Post Delivery Dx: spontaneous vaginal delivery (Head OP, nuchal cord x2 reduced prior to the shoulders, shoulders and body easily followed. Mouth and nares bulb suctioned and placed on mother's abdomen.) Weeks gestation: 39 Anesthesia: epidural - Findings A Sex: male - 1 min: 7 - 5 min: 9 - Additional Findings/Plan Placenta delivered: spontaneous (Intact with 3 vessel cord) Repaired Obstetrical Laceration: none Post delivery plan: routine recovery
[2019-04-28] MEDS ORDERED: Lanolin Ointment 7 GM TUBE TOP PRN (06:05)
[2019-04-28] MEDS ORDERED: Benzocaine-Menthol 82.5 ML CAN TOP PRN (06:05)
[2019-04-28] MEDS ORDERED: hydrALAZINE 20 MG/ML VIAL SLOW IVP PRN (06:05)
[2019-04-28] MEDS ORDERED: Adacel (T-DAP) 0.5 ML SYRINGE IM ONE (06:05)
[2019-04-28] MEDS ORDERED: NS / Oxytocin 40 units/1000ml 1,000 ML IV SCH (06:05)
[2019-04-28] MEDS ORDERED: Measles/Mumps/Rubella 10 MCG/0.5 ML VIAL SC ONE (06:05)
[2019-04-28] MEDS ORDERED: Bisacodyl 10 MG SUPP PR PRN (06:05)
[2019-04-28] MEDS ORDERED: diphenhydrAMINE 25 MG CAP PO PRN (06:05)
[2019-04-28] MEDS ORDERED: Milk Of Magnesia 30 ML UDCUP PO PRN (06:05)
[2019-04-28] MEDS: Ibuprofen 800 MG TAB PO SCH ×3 (06:51→21:53)
[2019-04-28] MEDS: Ferrous Sulfate 325 MG TAB PO SCH ×2 (08:01→18:06)
[2019-04-28] MEDS: Docusate Calcium (SURFAK) 240 MG CAP PO SCH ×3 (09:49→21:53)
[2019-04-28] MEDS ORDERED: FLU VACC QS2019-20(6MOS UP)/PF 60 MCG/0.5 ML SYRINGE IM ONE (13:00)
[2019-04-28] MEDS: HYDROcodone/Acetaminophen 5/325 mg Tablet PO PRN ×2 (15:22→20:14)
[2019-04-29] MEDS: Ibuprofen 800 MG TAB PO SCH ×3 (06:21→21:14)
[2019-04-29] MEDS: Ferrous Sulfate 325 MG TAB PO SCH ×2 (08:52→15:45)
[2019-04-29] MEDS: Docusate Calcium (SURFAK) 240 MG CAP PO SCH ×2 (09:28→21:14)
[2019-04-29] MEDS: HYDROcodone/Acetaminophen 5/325 mg Tablet PO PRN (09:29)
--- NOTE | 2019-04-29 13:19 | PDOC.PP ---
Post Progress Note Post Day #: 1 Subjective: Doing well. going well. Baby needs phototx so they will stay until tomorrow. PO intake tolerated: yes Flatus: yes Ambulation: yes Vital Signs (12 hours) Temp Pulse Resp BP Pulse Ox 04/29/19 08:00 98.5 F 81 20 105/60 98 04/29/19 04:15 98.5 F 98 16 120/85 97 Weight Weight 202 lb - Physical Examination General: NAD Cardiovascular: no m/r/g, RRR Respiratory: clear to auscultation bilaterally, non-labored breathing Abdominal: + bowel sounds, lochia, no distention, appropriately TTP Result Diagrams: 04/27/19 14:38 Additional Labs: Post Labs Blood Type A POSITIVE 04/27/19 14:38 Hep Bs Antigen Non-Reactive S/CO (NonReactive) 04/27/19 14:38 (1) Elective induction of labor planned Code(s): [id number] - Status: Acute (2) Term Code(s): Z34.80 - ENCOUNTER FOR SUPRVSN OF NORMAL , UNSP TRIMESTER Status: Acute (3) Vaginal delivery Code(s): O80 - ENCOUNTER FOR FULL-TERM UNCOMPLICATED DELIVERY Status: Acute - Assessment/Plan Routine care Continue to breastfeed on demand Home tomorrow if baby's bili OK
[2019-04-30] MEDS: Ibuprofen 800 MG TAB PO SCH (05:58)
[2019-04-30] MEDS: Ferrous Sulfate 325 MG TAB PO SCH (07:55)
[2019-04-30] MEDS: Docusate Calcium (SURFAK) 240 MG CAP PO SCH (08:08)
[2019-04-30 08:30] VITALS: BP 97/52; TEMP 98.4
--- NOTE | 2019-04-30 15:00 | PDOC.PP ---
Post Progress Note Post Day #: 2 Subjective: Doing well. NO C/O. Ready to go home. She did report an issue with the nursery nurse overnight - see the nurses documentation for details. PO intake tolerated: yes Flatus: yes Ambulation: yes Vital Signs (12 hours) Temp Pulse Resp BP Pulse Ox 04/30/19 08:10 98.4 F 76 18 97/52 L 98 Weight Weight 202 lb - Physical Examination General: NAD Cardiovascular: no m/r/g, RRR Respiratory: clear to auscultation bilaterally Abdominal: + bowel sounds Extremities: negative homans (B) Result Diagrams: 04/27/19 14:38 Additional Labs: Post Labs Blood Type A POSITIVE 04/27/19 14:38 Hep Bs Antigen Non-Reactive S/CO (NonReactive) 04/27/19 14:38 (1) Elective induction of labor planned Code(s): [id number] - Status: Acute (2) Term Code(s): Z34.80 - ENCOUNTER FOR SUPRVSN OF NORMAL , UNSP TRIMESTER Status: Acute (3) Vaginal delivery Code(s): O80 - ENCOUNTER FOR FULL-TERM UNCOMPLICATED DELIVERY Status: Acute - Assessment/Plan Routine PP care D/C home F/U with me in 6 weeks.
== END 2019-04-30 12:40 | disposition home or self-care (01) | DRG 807 ==
LOC: L&D 12:02 → 3SW 04-28 05:54 → EDSTATUS 05-01 08:20
PROVIDERS: ADMIT Family Medicine; ATTEND Family Medicine
PROC: 0U7C7ZZ Dilation of Cervix, Via Natural or Artificial Opening (ICD-10-PCS; 2019-04-27)
PROC: 3E0P7VZ Introduction of Hormone into Female Reproductive, Via Natural or Artificial Opening (ICD-10-PCS; 2019-04-27)
PROC: 3E033VJ Introduction of Other Hormone into Peripheral Vein, Percutaneous Approach (ICD-10-PCS; 2019-04-27)
PROC: 10907ZC Drainage of Amniotic Fluid, Therapeutic from Products of Conception, Via Natural or Artificial Opening (ICD-10-PCS; 2019-04-27)
PROC: 10E0XZZ Delivery of Products of Conception, External Approach (ICD-10-PCS; principal; 2019-04-28)
DX: O69.81X0 Labor and delivery complicated by cord around neck, without compression, not applicable or unspecified (principal); Z37.0 Single live birth; O99.824 Streptococcus B carrier state complicating childbirth; Z3A.39 39 weeks gestation of pregnancy; Z88.0 Allergy status to penicillin; Z88.2 Allergy status to sulfonamides
CPT/HCPCS: 36415; 51702; 85027; 86780; 86850; 86900; 86901; 87340; C1726; J2405; J2590; J3010